=== PATIENT | male | born 2000 | race African-American/Black ===

== ENCOUNTER 2021-10-20 13:09 | Emergency (ER) | payer OTHER ==
[~2021-10-20] VITALS: Ht 170.2 cm; Wt 86.4 kg
[2021-10-20 13:14] VITALS: BP 112/63
[2021-10-20] MEDS ORDERED: LIDOCAINE 1% 10 ML VIAL SQ ONE (13:30)
[2021-10-20] MEDS ORDERED: DOXYCYCLINE HYCLATE 100 MG TABLET PO ONE (14:45)
[2021-10-20] MEDS ORDERED: CEPHALEXIN MONOHYDRATE 500 MG CAPSULE PO ONE (14:45)
== END 2021-10-20 14:48 | disposition home or self-care (01) ==
LOC: EMS 13:17
DX: L02.01 Cutaneous abscess of face (principal)
CPT/HCPCS: 10160; 99284; J3490